=== PATIENT | male | born 1965 | race Two or more races ===

== ENCOUNTER 2021-08-15 11:30 | Emergency (ER) | payer MEDICAID, OTHER ==
[~2021-08-15] VITALS: Ht 180.3 cm; Wt 79.4 kg
[2021-08-15 12:15] VITALS: BP 150/78
[2021-08-15] MEDS ORDERED: AZIT500T PO (13:57)
[2021-08-15] MEDS ORDERED: ACET-1080 PO (13:57)
== END 2021-08-15 14:09 | disposition home or self-care (01) ==
LOC: ER 11:30
DX: J03.90 Acute tonsillitis, unspecified (principal); Z20.822 Contact with and (suspected) exposure to COVID-19
CPT/HCPCS: 36415; 71045; 87426